=== PATIENT | female | born 2005 | race Caucasian/White ===

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

== ENCOUNTER → 2025-09-08 | Outpatient (CLI) | payer OTHER, SELFPAY ==
--- NOTE | 2025-09-08 12:30 | LES_PTH ---
PATIENT: RICHARD NIETO [facility]: [facility] U#:[id number] AGE/SX: 20/F ROOM: RE09/08/[address]: Dr. Iliana Hart DO : 2005 BED: DIS: 09/08/2025 SPEC #: [id number] RECD: 09/08/25 14:46 STATUS: MARKUS ELKIN #: [id number] KATHI: 09/08/25 12:[address]: Iliana Hart DEPT: SURGICAL PATHOLOGY RECD BY: Ann Marie Anne Tissues: Skin of upper extremity and shoulder Procedures: Surgery Specimen Level IV HEADER OPERATION: Excisional Biopsy PRE-OP DIAGNOSIS: Melanoma vs atypical nevus TISSUE SUBMITTED: A. Left scapula mole MICROSCOPIC DIAGNOSIS A. Skin, left scapula, mole, excision: - Atypical melanocytic proliferation. - Final diagnosis is pending expert dermatopathologist consultation and a separate report will follow. MICROSCOPIC DESCRIPTION Slides are reviewed. GROSS DESCRIPTION A. Received in formalin labeled with the patient's name and date of , designated as left scapula. Is a 0.6 x 0.5 x 0.4 cm esparza skin. There is a dark brown lesion on the skin surface measuring 0.2 x 0.2 cm. and is grossly abutting the peripheral edge of the excised skin. The specimen is inked, trisected and entirely submitted in one cassette. CW:09/09/2025 CPT: 98581 ADDENDUM ADDENDUM ADDENDUM ADDENDUM ADDENDUM ADDENDUM ADDENDUM ADDENDUM ADDENDUM ADDENDUM ADDENDUM ADDENDUM ADDENDUM ADDENDUM ADDENDUM ADDENDUM ADDENDUM ADDENDUM ADDENDUM ADDENDUM ADDENDUM 09/24/2025 08:43 ADDENDUM 09/24/2025 08:43 ADDENDUM 09/24/2025 08:43 ADDENDUM 09/24/2025 08:43 ADDENDUM 09/24/2025 08:43 This addendum is added to incorporate an outside pathology consultation report. The case was examined at [facility] by Dr. Love (#[id number]) and the following diagnosis was rendered. A. 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 Microscopic Description: Histologic sections show a compound melanocytic lesion with disorganized and randomly distributed nests that are horizontally oriented. The melanocytic cells commonly have an epithelioid shape with scant cytoplasm and with moderate hyperchromatic and pleomorphic nuclei. There is stromal response composed of lamellar and concentric fibroplasia of the papillary dermis, associated with a lymphocytic infiltrate. Nested melanocytes are present in the dermis. A Melan-A immunostain (with appropriate controls) highlights melanocyte distribution and supports the above diagnosis. Initial and multiple deeper sections were examined. Please see complete above-mentioned consultation report in EMR
== END | disposition home or self-care (01) ==
LOC: LABSPEC 13:08
PROVIDERS: PCP Family Medicine; Visit Provider Family Medicine
DX: D22.62 Melanocytic nevi of left upper limb, including shoulder (principal)
CPT/HCPCS: 88305